=== PATIENT | female | born 1965 | race Caucasian/White ===

== ENCOUNTER 2017-09-12 09:04 | Emergency (ER) | payer OTHER ==
[~2017-09-12] VITALS: Ht 160 cm; Wt 78.0 kg
[2017-09-12 09:06] VITALS: BP 156/98; PULSE 86; RESP 15; TEMP 97.8; O2SAT 98
[2017-09-12] MEDS ORDERED: PROP10TA6 PO (09:17)
[2017-09-12] MEDS ORDERED: SODIUM CHLORIDE 0.9% FLUSH 10 ML FLUSH IV FLUSH PRN (09:45)
[2017-09-12] MEDS ORDERED: LIDOCAINE VISCOUS 2% SOLN 15 ML UDC SWISH-SWAL ONE (09:45)
[2017-09-12] MEDS ORDERED: ALUMINUM/MAGNESIUM/SIMETH 30 ML CUP PO ONE (09:45)
[2017-09-12] MEDS ORDERED: ATROPINE/SCOPOLAM/HYOSCYAM/PB ELIXIR 10 ML CUP PO ONE (09:45)
[2017-09-12 10:06] LABS: AUTOMATED NEUTROPHIL # 4.1 TH/MM3 (1.8-7.7); BASOPHIL % 0.6 % (0.0-2.0); EOSINOPHIL % 0.6 % (0.0-4.0); HEMATOCRIT 41.3 % (35.0-46.0); HEMO FLAGS DIFF FINAL; LYMPH % 30.3 % (9.0-44.0); MEAN CELL VOLUME 90.2 FL (80.0-100.0); MEAN CORPUSCULAR HEMOGLOBIN 31.1 PG (27.0-34.0); MEAN CORPUSCULAR HGB CONC 34.5 % (32.0-36.0); MONO % 7.6 % (0.0-8.0); NEUT % 60.9 % (16.0-70.0); PLATELET COUNT 298 TH/MM3 (150-450); RED BLOOD COUNT 4.58 MIL/MM3 (4.00-5.30); WHITE BLOOD COUNT 6.7 TH/MM3 (4.0-11.0)
[2017-09-12 10:26] LABS: ALT (GPT) 20 U/L (10-53); ANION GAP 5 MEQ/L (5-15); AST (GOT) 11 U/L (15-37); BICARBONATE 29.4 MEQ/L (21.0-32.0); BLOOD UREA NITROGEN 8 MG/DL (7-18); CHLORIDE 104 MEQ/L (98-107); GLOMERULAR FILTRATION RATE 83 ML/MIN (>89); POTASSIUM 4.1 MEQ/L (3.5-5.1); SODIUM (NA) 138 MEQ/L (136-145)
[2017-09-12 10:30] LABS: ALKALINE PHOSPHATASE 106 U/L (45-117); TOTAL BILIRUBIN ADULT 0.6 MG/DL (0.2-1.0)
--- NOTE | 2017-09-12 10:39 | PD ---
HPI Chief Complaint: Dizziness Time Seen by Provider: 09:22 Travel History International Travel<30 days: No Contact w/Intl Traveler<30days: No Traveled to known affect area: No History of Present Illness HPI This is a 52-year-old female who presents to the emergency department with lightheadedness and dizziness that started this morning when she was at work. She reports that she started to have chest burning in the center of her chest going all the way down to her upper abdomen, constant, moderate severity associated with dizziness and lightheadedness feeling like she was going to pass out. She denies any fevers or chills. She says she's been having this pain intermittently for several months but today is the worst. She did take a propanolol earlier this morning which she takes only as needed and she hasn't taken in a while. She is otherwise healthy with no history of high blood pressure, cholesterol or diabetes. Her mother had open heart surgery at an older age. She says she smoked for 3 years. [facility] Past Medical History Medical History: Denies Significant Hx Tetanus Vaccination: Unknown Influenza Vaccination: No ?: Not Past Surgical History Hysterectomy: Yes (partial) Other Surgery: Yes (breast implant removal) Social History Alcohol Use: No Tobacco Use: No Substance Use: No Allergies-Medications (Allergen,Severity, Reaction): Coded Allergies: latex (Verified Allergy, Unknown, 09/12/17) Reported Meds & Prescriptions Reported Meds & Active Scripts Active Reported Propranolol (Propranolol HCl) 10 Mg Tab 10 Mg PO Q12HR Review of Systems Except as stated in HPI: all other systems reviewed are Neg Physical Exam Narrative GENERAL:Well appearing, no acute distress SKIN: Focused skin assessment warm and dry. HEAD: Atraumatic. Normocephalic. EYES: Pupils equal and round. No injection or drainage. ENT: Moist mucous membranes NECK: Trachea midline. CARDIOVASCULAR: Regular rate and rhythm. No murmur appreciated. RESPIRATORY: Clear to auscultation. Breath sounds equal bilaterally. GASTROINTESTINAL: Abdomen soft, non-tender, nondistended. MUSCULOSKELETAL: No obvious deformities. NEUROLOGICAL: Awake and alert. No obvious cranial nerve deficits. Moving all extremities. PSYCHIATRIC: Appropriate mood and affect; insight and judgment normal. Data Data Last Documented VS Vital Signs Date Time Temp Pulse Resp B/P (MAP) Pulse Ox O2 Delivery O2 Flow Rate FiO2 09/12/17 11:33 69 18 99 Room Air 09/12/17 11:28 09/12/17 09:06 97.8 Orders Orders Complete Blood Count With Diff (09/12/17 09:34) Comprehensive Metabolic Panel (09/12/17 09:34) Lipase (09/12/17 09:34) Urinalysis - C+S If Indicated (09/12/17 09:34) Iv Access Insert/Monitor (09/12/17 09:34) Ecg Monitoring (09/12/17 09:34) Oximetry (09/12/17 09:34) Sodium Chloride 0.9% Flush (Ns Flush) (09/12/17 09:45) Troponin I (09/12/17 09:34) Electrocardiogram (09/12/17 ) Al-Mag Hy-Si 40-40-4 Mg/Ml Liq (Mag-Al P (09/12/17 09:45) Lidocaine 2% Viscous (Xylocaine 2% Visco (09/12/17 09:45) Enlzu-Edbbbu-Xstjgj-Pb Liq ( Liq (09/12/17 09:45) Chest, Single Ap (09/12/17 ) Labs Laboratory Tests Test 09/12/17 09:38 09/12/17 09:50 White Blood Count 6.7 TH/MM3 Red Blood Count 4.58 MIL/MM3 Hemoglobin 14.2 GM/DL Hematocrit 41.3 % Mean Corpuscular Volume 90.2 FL Mean Corpuscular Hemoglobin 31.1 PG Mean Corpuscular Hemoglobin Concent 34.5 % Red Cell Distribution Width 13.0 % Platelet Count 298 TH/MM3 Mean Platelet Volume 7.8 FL Neutrophils (%) (Auto) 60.9 % Lymphocytes (%) (Auto) 30.3 % Monocytes (%) (Auto) 7.6 % Eosinophils (%) (Auto) 0.6 % Basophils (%) (Auto) 0.6 % Neutrophils # (Auto) 4.1 TH/MM3 Lymphocytes # (Auto) 2.0 TH/MM3 Monocytes # (Auto) 0.5 TH/MM3 Eosinophils # (Auto) 0.0 TH/MM3 Basophils # (Auto) 0.0 TH/MM3 CBC Comment DIFF FINAL Differential Comment Blood Urea Nitrogen 8 MG/DL Creatinine 0.74 MG/DL Random Glucose 101 MG/DL Total Protein 8.0 GM/DL Albumin 4.0 GM/DL Calcium Level 9.3 MG/DL Alkaline Phosphatase 106 U/L Aspartate Amino Transf (AST/SGOT) 11 U/L Alanine Aminotransferase (ALT/SGPT) 20 U/L Total Bilirubin 0.6 MG/DL Sodium Level 138 MEQ/L Potassium Level 4.1 MEQ/L Chloride Level 104 MEQ/L Carbon Dioxide Level 29.4 MEQ/L Anion Gap 5 MEQ/L Estimat Glomerular Filtration Rate 83 ML/MIN Troponin I LESS THAN 0.02 NG/ML Lipase 157 U/L Urine Color LIGHT-YELLOW Urine Turbidity CLEAR Urine pH 7.5 Urine Specific Newell 1.003 Urine Protein NEG mg/dL Urine Glucose (UA) NEG mg/dL Urine Ketones NEG mg/dL Urine Occult Blood NEG Urine Nitrite NEG Urine Bilirubin NEG Urine Urobilinogen LESS THAN 2.0 MG/DL Urine Leukocyte Esterase NEG Urine RBC LESS THAN 1 /hpf Urine WBC 2 /hpf Urine Squamous Epithelial Cells 2 /hpf Urine Bacteria OCC /hpf Microscopic Urinalysis Comment CULT NOT INDICATED MDM Medical Decision Making Medical Screen Exam Complete: Yes Emergency Medical Condition: Yes Interpretation(s) Afebrile, no tachycardia, hypertensive No leukocytosis Electrolytes are reassuring Troponin is normal Lipase is normal Urinalysis is negative for infection Chest x-ray: No acute process Differential Diagnosis Myocardial infarction, gastritis, peptic ulcer disease, cholelithiasis, anxiety Narrative Course This is a 52-year-old female who presents to the emergency department with multiple symptoms including chest discomfort, dizziness, some tingling in her arms and some shortness of breath that have been going on intermittently for months. None of this is new but it seemed a little bit worse today. She also took propanolol this morning. She was placed on a monitor and an IV was established. EKG is nonischemic. Labs are all reassuring. I discussed the patient the option of observing her for a stress test and serial cardiac enzymes although I have a very low suspicion based on her history and risk factors that she's had a heart attack. She would prefer to go home and follow- up with her primary care physician. She says right now the dizziness is what bothering her the most. She'll be prescribed meclizine and Zantac for her epigastric discomfort. I advised her that if she feels that all worse she should return to the emergency room. Diagnosis Primary Impression: Dizziness Patient Instructions: General Instructions Additional Instructions: If you develop severe chest pain, shortness of breath, sweating, lightheadedness , dizziness or difficulty breathing return to the emergency department immediately. Followup with your primary care physician in 2-3 days if your symptoms are not resolved. Med/Other Pt SpecificInfo: Prescription(s) given Scripts Ranitidine (Zantac) 150 Mg Tab 150 MG PO BID for Reduce Stomach Acid, #60 TAB 0 Refills Prov: Mariama Pham MD 09/12/17 Meclizine (Meclizine) 25 Mg Tab 25 MG PO Q6HR Y for VERTIGO, #15 TAB 0 Refills Prov: Mariama Pham MD 09/12/17 Disposition: 01 DISCHARGE HOME Condition: Stable Mariama Pham MD Sep 12, 2017 10:39
[2017-09-12 10:57] LABS: BACTERIA, URINE OCC /hpf; BLOOD, URINE NEG (NEG); COMMENT (UR) CULT NOT INDICATED; CULTURE IF INDICATED CULT NOT INDICATED; GLUCOSE,URINE NEG (NEG); KETONE, URINE NEG (NEG); NITRITE,URINE NEG (NEG); PH, URINE 7.5 (5.0-8.5); SQUAMOUS EPITHELIAL CELL URINE 2 /hpf (0-5); URINE COLOR LIGHT-YELLOW (YELLW/STRAW)
[2017-09-12 11:28] VITALS: O2SAT 98
--- NOTE | 2017-09-12 11:35 | RADRPT ---
EXAM DATE/TIME: 09/12/2017 11:21 [place] COMPARISON: No previous studies available for comparison. INDICATIONS : Syncope, short of breath. MEDICAL HISTORY : None. SURGICAL HISTORY : None. ENCOUNTER: Initial ACUITY: 1 day PAIN SCORE: 8/10 LOCATION: Bilateral chest FINDINGS: A single view of the chest demonstrates the lungs to be symmetrically aerated without evidence of mas s, infiltrate or effusion. The cardiomediastinal contours are unremarkable. Osseous structures are intact. CONCLUSION: Normal examination for a patient of this age. Manuel Anderson MD on September 12, 2017 at 11:32 Board Certified Radiologist. This report was verified electronically.
[2017-09-12] MEDS ORDERED: MECL-62 PO ×2 (11:50→12:00)
[2017-09-12] MEDS ORDERED: ZANT150T2 PO (11:50)
[2017-09-12] MEDS ORDERED: MECLIZINE HCL 25 MG TAB PO ONE (12:00)
--- NOTE | 2017-09-12 21:38 | EKG ---
Date Performed: 09/12/2017 Time Performed: 09:38:39 PTAGE: 52 years EKG: Sinus rhythm LOW QRS VOLTAGE IN PRECORDIAL LEADS BORDERLINE ECG NO PREVIOUS TRACING : DOCTOR: Sly Juarez Interpretating Date/Time 09/12/2017 21:37:00
== END 2017-09-12 12:24 | disposition home or self-care (01) ==
LOC: NEPD 09:04
DX: R42 Dizziness and giddiness (principal); R06.02 Shortness of breath; Z87.891 Personal history of nicotine dependence
CPT/HCPCS: 71010; 80053; 81001; 83690; 84484; 85025; 93005; 99285